=== PATIENT | female | born 1960 | race Caucasian/White ===

== ENCOUNTER 2017-11-14 06:46 | Day surgery (SDC) | payer OTHER ==
[2017-11-14] MEDS ORDERED: LIDOCAINE 4% SOLUTION 50 ML BTL (08:30)
[2017-11-14] MEDS ORDERED: MIDAZOLAM 1 MG/ML 2 ML INJ ×2 (09:07)
[2017-11-14] MEDS ORDERED: FENTAnyl 50 MCG/ML VIAL (09:07)
== END 2017-11-14 13:35 | disposition home or self-care (01) ==
LOC: GIL 06:46
DX: Z12.11 Encounter for screening for malignant neoplasm of colon (principal); K21.0 Gastro-esophageal reflux disease with esophagitis; K29.70 Gastritis, unspecified, without bleeding
CPT/HCPCS: 43239; 88305; 88312

== ENCOUNTER 2018-03-07 09:57 | Inpatient (IN) | payer OTHER ==
[2018-03-07] MEDS: ONDANSETRON 4 MG INJ IV (11:48)
[2018-03-07] MEDS: HYDROmorphONE 1 MG/5 ML IV SYRINGE IV (11:48)
[2018-03-07] MEDS: SOD CHLORIDE 0.9% 1,000 ML IV ×2 (11:48→15:28)
[2018-03-07 11:50] LABS: ADD MAN DIFF? NO
[2018-03-07 11:52] LABS: WHITE BLOOD COUNT 5.6 10^3/ul (4.8-10.8)
[2018-03-07 11:52] LABS: ABNORMAL IP MESSAGE 1; BASOPHILS % 0.5 % (0.0-2.0); EOSINOPHILS # 0.1 10^3/ul (0.0-0.5); EOSINOPHILS % 1.2 % (0.0-7.0); HEMATOCRIT 37.3 % (37.0-47.0); HEMOGLOBIN 12.5 g/dl (12.0-16.0); LYMPHOCYTES # 0.6 10^3/ul (0.8-2.9); MEAN CORPUSCULAR HEMOGLOBIN 29.3 pg (29.0-33.0); MEAN CORPUSCULAR HGB CONC 33.5 g/dl (32.0-37.0); MEAN CORPUSCULAR VOLUME 87.4 fl (82.0-101.0); MEAN PLATELET VOLUME 10.1 fl (7.4-10.4); MONOCYTE # 0.4 10^3/ul (0.3-0.9); MONOCYTES % 7.8 % (0.0-11.0); NEUTROPHIL # 4.5 10^3/ul (1.6-7.5); NEUTROPHILS % 79.4 % (39.0-77.0); PLATELET COUNT 299 10^3/UL (140-415); RED BLOOD COUNT 4.27 10^6/ul (4.20-5.40); RED CELL DISTRIBUTION WIDTH 12.9 % (11.5-14.5)
[2018-03-07 12:18] LABS: INR 0.86; PARTIAL THROMBOPLASTIN TIME 26.4 Sec (25.0-35.0); PROTIME 11.8 Sec (11.9-14.9); PT RATIO 0.9
[2018-03-07 12:26] LABS: ALANINE AMINOTRANSFERASE 31 IU/L (13-69); ALBUMIN 4.4 g/dl (3.3-4.9); ALBUMIN/GLOBULIN RATIO 1.18; ALKALINE PHOSPHATASE 88 IU/L (42-121); ANION GAP 16 (8-16); ASPARTATE AMINO TRANSFERASE 30 IU/L (15-46); BILIRUBIN,INDIRECT 0.4 mg/dl (0-1.1); BILIRUBIN,TOTAL 0.4 mg/dl (0.2-1.3); BLOOD UREA NITROGEN 19 mg/dl (7-20); CALCIUM 8.9 mg/dl (8.4-10.2); CARBON DIOXIDE 26 mmol/L (21-31); CHLORIDE 104 mmol/L (97-110); CREATININE 0.66 mg/dl (0.44-1.00); GLUCOSE 79 mg/dl (70-220); SODIUM 142 mmol/L (135-144); TOTAL PROTEIN 8.1 g/dl (6.1-8.1)
[2018-03-07] MEDS ORDERED: ONDANSETRON 4 MG INJ IV (14:30)
[2018-03-07] MEDS ORDERED: ACETAMINOPHEN 325 MG TAB PO ×2 (14:30→18:00)
[2018-03-07] MEDS: BISACODYL (EC) 5 MG TAB PO (16:53)
[2018-03-07] MEDS: morphine 2 MG INJ IV ×2 (16:53→20:45)
[2018-03-07] MEDS: MAGNESIUM CITRATE 300 ML BTL PO (17:40)
[2018-03-07] MEDS ORDERED: MAGNESIUM HYDROXIDE 30ML CUP PO (18:00)
[2018-03-07] MEDS ORDERED: NACL 0.9% 3 ML SYG IV (18:00)
[2018-03-07] MEDS ORDERED: DOCUSATE SODIUM 100 MG CAP PO (18:00)
[2018-03-07] MEDS ORDERED: ZOLPIDEM 5 MG TAB PO (18:00)
[2018-03-07] MEDS: D5W-0.45 NACL + KCL 20 MEQ 1,000 ML IV (18:55)
[2018-03-07] MEDS: POLYETHYLENE GLYCOL 3350 119 GM POWDER PO (18:55)
[2018-03-07] MEDS: HYDROCODONE/APAP (5/325) TAB PO (21:51)
[2018-03-08] MEDS: D5W-0.45 NACL + KCL 20 MEQ 1,000 ML IV ×5 (03:45→23:25)
[2018-03-08] MEDS: morphine 2 MG INJ IV ×4 (05:12→21:29)
[2018-03-08] MEDS: PANTOPRAZOLE 40 MG INJ IV (05:14)
[2018-03-08] MEDS: POLYETHYLENE GLYCOL 3350 119 GM POWDER PO (05:34)
[2018-03-08] MEDS: BISACODYL (EC) 5 MG TAB PO (05:36)
[2018-03-08 05:39] LABS: ADD MAN DIFF? NO
[2018-03-08 05:47] LABS: ABNORMAL IP MESSAGE 1; EOSINOPHILS # 0.1 10^3/ul (0.0-0.5); EOSINOPHILS % 3.4 % (0.0-7.0); HEMATOCRIT 38.1 % (37.0-47.0); HEMOGLOBIN 12.6 g/dl (12.0-16.0); LYMPHOCYTES # 0.5 10^3/ul (0.8-2.9); LYMPHOCYTES % 18.3 % (15.0-51.0); MEAN CORPUSCULAR HEMOGLOBIN 28.8 pg (29.0-33.0); MEAN CORPUSCULAR HGB CONC 33.1 g/dl (32.0-37.0); MEAN PLATELET VOLUME 10.2 fl (7.4-10.4); MONOCYTE # 0.3 10^3/ul (0.3-0.9); MONOCYTES % 9.2 % (0.0-11.0); NEUTROPHILS % 67.1 % (39.0-77.0); PLATELET COUNT 308 10^3/UL (140-415); RED BLOOD COUNT 4.38 10^6/ul (4.20-5.40); RED CELL DISTRIBUTION WIDTH 12.8 % (11.5-14.5)
[2018-03-08] MEDS ORDERED: PANTOPRAZOLE (EC) 40 MG TAB PO (06:00)
[2018-03-08 06:03] LABS: POSITIVE DIFF @See below
[2018-03-08 06:10] LABS: ALANINE AMINOTRANSFERASE 31 IU/L (13-69); ALBUMIN 3.8 g/dl (3.3-4.9); ALBUMIN/GLOBULIN RATIO 1.11; ALKALINE PHOSPHATASE 69 IU/L (42-121); ANION GAP 6 (8-16); ASPARTATE AMINO TRANSFERASE 23 IU/L (15-46); BILIRUBIN,INDIRECT 0.5 mg/dl (0-1.1); BILIRUBIN,TOTAL 0.5 mg/dl (0.2-1.3); BLOOD UREA NITROGEN 10 mg/dl (7-20); CALCIUM 9.2 mg/dl (8.4-10.2); CARBON DIOXIDE 35 mmol/L (21-31); CHLORIDE 104 mmol/L (97-110); GLUCOSE 91 mg/dl (70-220); MAGNESIUM 2.5 mg/dl (1.7-2.5); SODIUM 140 mmol/L (135-144); TOTAL PROTEIN 7.2 g/dl (6.1-8.1)
[2018-03-08 06:32] LABS: CARCINOEMBRYONIC ANTIGEN 5.6 ng/ml (0.0-5.0)
[2018-03-08 07:27] LABS: HEMOGLOBIN A1C 5.2 % (0-5.9)
[2018-03-08] MEDS ORDERED: ONDANSETRON 4 MG INJ IV (14:30)
[2018-03-08] MEDS ORDERED: DIPHENHYDRAMINE 50 MG INJ IV (14:30)
[2018-03-08] MEDS ORDERED: MEPERIDINE 25 MG INJ IV (14:30)
[2018-03-08] MEDS ORDERED: HYDROmorphONE (0.2 MG/ML) 10ML SYG IV (14:30)
[2018-03-08] MEDS: LIDOCAINE 2% (SDV) 5 ML INJ (14:57)
[2018-03-08] MEDS: PROPOFOL 40 ML (14:57)
[2018-03-08] MEDS: ONDANSETRON 4 MG INJ IV (16:03)
[2018-03-09] MEDS: PANTOPRAZOLE 40 MG INJ IV (06:04)
[2018-03-09] MEDS: D5W-0.45 NACL + KCL 20 MEQ 1,000 ML IV ×3 (06:04→17:19)
[2018-03-09] MEDS: morphine 2 MG INJ IV ×3 (06:04→22:20)
[2018-03-09] MEDS ORDERED: MESALAMINE 4 GM/60 ML ENEMA PR (09:00)
[2018-03-09] MEDS: MESALAMINE 1000 MG SUPP PR (10:57)
[2018-03-09] MEDS: HYDROCODONE/APAP (5/325) TAB PO (18:56)
[2018-03-09 22:32] LABS: ADD UMIC YES; UR ASCORBIC ACID NEGATIVE (NEGATIVE); UR BILIRUBIN (Dip) NEGATIVE (NEGATIVE); UR BLOOD (Dip) 1+ mg/dL (NEGATIVE); UR CLARITY CLEAR (CLEAR); UR COLOR STRAW (YELLOW); UR GLUCOSE (Dip) NEGATIVE (NEGATIVE); UR KETONES (Dip) NEGATIVE (NEGATIVE); UR LEUKOCYTE ESTERASE (Dip) 1+ Leu/ul (NEGATIVE); UR NITRITE (Dip) NEGATIVE (NEGATIVE); UR RBC 0 /HPF (0-5); UR SPECIFIC GRAVITY (Dip) 1.006 (1.003-1.030); UR TOTAL PROTEIN (Dip) NEGATIVE (NEGATIVE); UR UROBILINOGEN (Dip) NEGATIVE (NEGATIVE); UR WBC 5 /HPF (0-5)
[2018-03-10] MEDS: morphine 2 MG INJ IV ×3 (02:23→20:35)
[2018-03-10] MEDS: D5W-0.45 NACL + KCL 20 MEQ 1,000 ML IV ×2 (03:22→13:59)
[2018-03-10] MEDS: PANTOPRAZOLE 40 MG INJ IV (05:48)
[2018-03-10 05:54] LABS: WHITE BLOOD COUNT 2.3 10^3/ul (4.8-10.8)
[2018-03-10 05:54] LABS: ABNORMAL IP MESSAGE 1; HEMATOCRIT 35.4 % (37.0-47.0); HEMOGLOBIN 11.6 g/dl (12.0-16.0); MEAN CORPUSCULAR HEMOGLOBIN 28.9 pg (29.0-33.0); MEAN CORPUSCULAR HGB CONC 32.8 g/dl (32.0-37.0); MEAN CORPUSCULAR VOLUME 88.3 fl (82.0-101.0); MEAN PLATELET VOLUME 10.6 fl (7.4-10.4); PLATELET COUNT 254 10^3/UL (140-415); RED BLOOD COUNT 4.01 10^6/ul (4.20-5.40); RED CELL DISTRIBUTION WIDTH 12.8 % (11.5-14.5)
[2018-03-10 06:26] LABS: PATH REVIEW? YES; POSITIVE DIFF @See below
[2018-03-10 06:27] LABS: ADD MAN DIFF? YES
[2018-03-10 06:45] LABS: ALANINE AMINOTRANSFERASE 27 IU/L (13-69); ALBUMIN 3.6 g/dl (3.3-4.9); ALBUMIN/GLOBULIN RATIO 1.09; ALKALINE PHOSPHATASE 60 IU/L (42-121); ANION GAP 10 (8-16); ASPARTATE AMINO TRANSFERASE 23 IU/L (15-46); BILIRUBIN,INDIRECT 0.3 mg/dl (0-1.1); BILIRUBIN,TOTAL 0.3 mg/dl (0.2-1.3); BLOOD UREA NITROGEN 9 mg/dl (7-20); CALCIUM 8.5 mg/dl (8.4-10.2); CARBON DIOXIDE 33 mmol/L (21-31); CHLORIDE 104 mmol/L (97-110); CREATININE 0.64 mg/dl (0.44-1.00); GLUCOSE 70 mg/dl (70-220); POTASSIUM 4.1 mmol/L (3.5-5.1); SODIUM 143 mmol/L (135-144); TOTAL PROTEIN 6.9 g/dl (6.1-8.1)
[2018-03-10] MEDS: HYDROCODONE/APAP (5/325) TAB PO (07:57)
[2018-03-10 09:41] LABS: ANISOCYTOSIS 1+ (0-0); BAND NEUTROPHILS % (M) 2 % (0-4); BASOPHILS % (M) 2 % (0-2); EOSINOPHILS % (M) 7 % (0-7); ERYTHROBLAST% (NRBC) (M) 1 % (0-0); GIANT THROMBO% (M) 4 % (0-0); LYMPHOCYTES #M 0.3 10^3/ul (0.8-2.9); LYMPHOCYTES % (M) 15 % (15-51); MICROCYTOSIS 1+ (0-0); MONOCYTE #M 0.2 10^3/ul (0.3-0.9); MONOCYTES % (M) 11 % (0-11); MYELOCYTES % (M) 1 % (0-0); PLATELET ESTIMATE NORMAL; REACTIVE LYMPHOCYTES% (M) 2 % (0-0); SEG NEUT #M 1.4 10^3/ul (1.6-7.5); SEGMENTED NEUTROPHILS (M) % 60 % (39-77); SMUDGE%M 3 % (0-0)
[2018-03-10] MEDS: BARIUM SULF 2% 450 ML BTL (BERRY SMOOTHIE) PO ×2 (16:30→16:31)
[2018-03-10] MEDS ORDERED: SOD CHLORIDE 0.9% 100 ML (18:53)
[2018-03-10] MEDS ORDERED: IOHEXOL 300MG/ML 150 ML BTL (18:53)
[2018-03-10] MEDS: MESALAMINE 1000 MG SUPP PR (20:35)
[2018-03-10] MEDS ORDERED: MESALAMINE 4 GM/60 ML ENEMA PR (21:00)
[2018-03-11] MEDS: D5W-0.45 NACL + KCL 20 MEQ 1,000 ML IV ×4 (01:41→23:49)
[2018-03-11] MEDS: PANTOPRAZOLE (EC) 40 MG TAB PO (05:24)
[2018-03-11] MEDS: LEVOTHYROXINE 50 MCG TAB PO (05:24)
[2018-03-11] MEDS: morphine 2 MG INJ IV ×2 (07:56→13:29)
[2018-03-11 10:55] LABS: ADD MAN DIFF? NO
[2018-03-11 10:59] LABS: ABNORMAL IP MESSAGE 1; BASOPHILS % 0.6 % (0.0-2.0); EOSINOPHILS # 0.2 10^3/ul (0.0-0.5); EOSINOPHILS % 5.5 % (0.0-7.0); HEMATOCRIT 35.3 % (37.0-47.0); HEMOGLOBIN 11.6 g/dl (12.0-16.0); LYMPHOCYTES # 0.3 10^3/ul (0.8-2.9); LYMPHOCYTES % 9.3 % (15.0-51.0); MEAN CORPUSCULAR HEMOGLOBIN 28.9 pg (29.0-33.0); MEAN CORPUSCULAR HGB CONC 32.9 g/dl (32.0-37.0); MEAN CORPUSCULAR VOLUME 87.8 fl (82.0-101.0); MEAN PLATELET VOLUME 10.2 fl (7.4-10.4); MONOCYTE # 0.3 10^3/ul (0.3-0.9); MONOCYTES % 7.9 % (0.0-11.0); NEUTROPHIL # 2.6 10^3/ul (1.6-7.5); NEUTROPHILS % 76.4 % (39.0-77.0); PLATELET COUNT 257 10^3/UL (140-415); RED BLOOD COUNT 4.02 10^6/ul (4.20-5.40); RED CELL DISTRIBUTION WIDTH 12.8 % (11.5-14.5)
[2018-03-11 10:59] LABS: WHITE BLOOD COUNT 3.4 10^3/ul (4.8-10.8)
[2018-03-11 11:02] LABS: POSITIVE DIFF @See below
[2018-03-11] MEDS ORDERED: morphine LIQ (10 MG/5 ML) CUP PO (14:00)
[2018-03-11] MEDS: MESALAMINE 1000 MG SUPP PR (20:20)
[2018-03-11] MEDS: HYDROCODONE/APAP (5/325) TAB PO (20:20)
[2018-03-12 06:21] LABS: ADD MAN DIFF? NO
[2018-03-12] MEDS: PANTOPRAZOLE (EC) 40 MG TAB PO (06:29)
[2018-03-12] MEDS: LEVOTHYROXINE 50 MCG TAB PO (06:29)
[2018-03-12 06:40] LABS: ABNORMAL IP MESSAGE 1; BASOPHILS % 0.7 % (0.0-2.0); EOSINOPHILS # 0.2 10^3/ul (0.0-0.5); HEMATOCRIT 35.8 % (37.0-47.0); HEMOGLOBIN 11.7 g/dl (12.0-16.0); LYMPHOCYTES # 0.4 10^3/ul (0.8-2.9); LYMPHOCYTES % 15.9 % (15.0-51.0); MEAN CORPUSCULAR HEMOGLOBIN 28.6 pg (29.0-33.0); MEAN CORPUSCULAR HGB CONC 32.7 g/dl (32.0-37.0); MEAN CORPUSCULAR VOLUME 87.5 fl (82.0-101.0); MEAN PLATELET VOLUME 10.3 fl (7.4-10.4); MONOCYTE # 0.4 10^3/ul (0.3-0.9); MONOCYTES % 13.7 % (0.0-11.0); NEUTROPHIL # 1.7 10^3/ul (1.6-7.5); NEUTROPHILS % 62.7 % (39.0-77.0); PLATELET COUNT 257 10^3/UL (140-415); RED BLOOD COUNT 4.09 10^6/ul (4.20-5.40); RED CELL DISTRIBUTION WIDTH 12.8 % (11.5-14.5)
[2018-03-12 06:40] LABS: WHITE BLOOD COUNT 2.7 10^3/ul (4.8-10.8)
[2018-03-12 06:44] LABS: POSITIVE DIFF @See below
[2018-03-12 07:01] LABS: ANION GAP 13 (8-16); BLOOD UREA NITROGEN 9 mg/dl (7-20); CALCIUM 8.8 mg/dl (8.4-10.2); CARBON DIOXIDE 29 mmol/L (21-31); CHLORIDE 104 mmol/L (97-110); CREATININE 0.61 mg/dl (0.44-1.00); GLUCOSE 95 mg/dl (70-220); POTASSIUM 4.1 mmol/L (3.5-5.1); SODIUM 142 mmol/L (135-144)
[2018-03-12 07:18] LABS: PHOSPHORUS 4.1 mg/dl (2.5-4.9)
[2018-03-12] MEDS: D5W-0.45 NACL + KCL 20 MEQ 1,000 ML IV (07:45)
== END 2018-03-12 12:20 | disposition home or self-care (01) | DRG 394 ==
LOC: E/R 09:57 → MS2 14:03
PROC: 0DBP8ZX Excision of Rectum, Via Natural or Artificial Opening Endoscopic, Diagnostic (ICD-10-PCS; principal; 2018-03-08 13:30)
PROC: 0DBN8ZX Excision of Sigmoid Colon, Via Natural or Artificial Opening Endoscopic, Diagnostic (ICD-10-PCS; 2018-03-08 13:30)
DX: K62.89 Other specified diseases of anus and rectum (principal); K62.5 Hemorrhage of anus and rectum; C90.00 Multiple myeloma not having achieved remission; C88.0 Waldenstrom macroglobulinemia; E03.9 Hypothyroidism, unspecified
CPT/HCPCS: 36415; 74176; 74177; 76830; 80048; 80053; 81001; 82378; 83036; 83735; 84100; 85025; 85610; 85651; 85730; 86850; 86900; 86901; 87045; 87075; 87086; 87177; 88305; 96374; 96375; 99285-25

== ENCOUNTER 2018-03-15 13:42 | Outpatient (CLI) | payer OTHER | END 2018-03-15 16:42 | disposition home or self-care (01) | LOC: DCC 13:42 | DX: R10.9 Unspecified abdominal pain (principal); E03.9 Hypothyroidism, unspecified; Z85.79 Personal history of other malignant neoplasms of lymphoid, hematopoietic and related tissues | CPT/HCPCS: G0463 ==

== ENCOUNTER 2018-03-20 18:17 | Emergency (ER) | payer OTHER ==
[2018-03-20 23:03] LABS: ADD MAN DIFF? NO
[2018-03-20 23:07] LABS: WHITE BLOOD COUNT 2.8 10^3/ul (4.8-10.8)
[2018-03-20 23:07] LABS: BASOPHILS % 1.4 % (0.0-2.0); EOSINOPHILS # 0.1 10^3/ul (0.0-0.5); EOSINOPHILS % 4.9 % (0.0-7.0); HEMATOCRIT 35.3 % (37.0-47.0); HEMOGLOBIN 11.8 g/dl (12.0-16.0); LYMPHOCYTES # 0.7 10^3/ul (0.8-2.9); LYMPHOCYTES % 26.1 % (15.0-51.0); MEAN CORPUSCULAR HEMOGLOBIN 28.8 pg (29.0-33.0); MEAN CORPUSCULAR HGB CONC 33.4 g/dl (32.0-37.0); MEAN CORPUSCULAR VOLUME 86.1 fl (82.0-101.0); MEAN PLATELET VOLUME 10.1 fl (7.4-10.4); MONOCYTE # 0.5 10^3/ul (0.3-0.9); MONOCYTES % 16.3 % (0.0-11.0); NEUTROPHIL # 1.5 10^3/ul (1.6-7.5); NEUTROPHILS % 51.3 % (39.0-77.0); PLATELET COUNT 387 10^3/UL (140-415); RED CELL DISTRIBUTION WIDTH 13.2 % (11.5-14.5)
[2018-03-20] MEDS: morphine 4 MG/ML VIAL IV (23:07)
[2018-03-20] MEDS: ONDANSETRON 4 MG INJ IV (23:07)
[2018-03-20 23:31] LABS: ALANINE AMINOTRANSFERASE 38 IU/L (13-69); ALBUMIN 4.3 g/dl (3.3-4.9); ALBUMIN/GLOBULIN RATIO 1.13; ALKALINE PHOSPHATASE 97 IU/L (42-121); ANION GAP 14 (8-16); ASPARTATE AMINO TRANSFERASE 28 IU/L (15-46); BILIRUBIN,INDIRECT 0.4 mg/dl (0-1.1); BILIRUBIN,TOTAL 0.4 mg/dl (0.2-1.3); BLOOD UREA NITROGEN 15 mg/dl (7-20); CALCIUM 9.8 mg/dl (8.4-10.2); CARBON DIOXIDE 30 mmol/L (21-31); CHLORIDE 104 mmol/L (97-110); CREATININE 0.64 mg/dl (0.44-1.00); GLUCOSE 92 mg/dl (70-220); LIPASE 80 U/L (23-300); POTASSIUM 3.8 mmol/L (3.5-5.1); SODIUM 144 mmol/L (135-144); TOTAL PROTEIN 8.1 g/dl (6.1-8.1)
[2018-03-20 23:35] LABS: INR 0.97
[2018-03-20 23:36] LABS: PARTIAL THROMBOPLASTIN TIME 29.2 Sec (25.0-35.0)
[2018-03-20 23:42] LABS: TROPONIN-I < 0.012 ng/ml (0.000-0.120)
[2018-03-20 23:57] LABS: ADD UMIC YES; UR ASCORBIC ACID NEGATIVE (NEGATIVE); UR BILIRUBIN (Dip) NEGATIVE (NEGATIVE); UR BLOOD (Dip) NEGATIVE (NEGATIVE); UR CLARITY CLEAR (CLEAR); UR COLOR YELLOW (YELLOW); UR GLUCOSE (Dip) NEGATIVE (NEGATIVE); UR KETONES (Dip) TRACE mg/dL (NEGATIVE); UR LEUKOCYTE ESTERASE (Dip) 1+ Leu/ul (NEGATIVE); UR NITRITE (Dip) NEGATIVE (NEGATIVE); UR RBC 1 /HPF (0-5); UR SPECIFIC GRAVITY (Dip) 1.014 (1.003-1.030); UR TOTAL PROTEIN (Dip) NEGATIVE (NEGATIVE); UR UROBILINOGEN (Dip) NEGATIVE (NEGATIVE); UR WBC 18 /HPF (0-5)
== END 2018-03-21 00:56 | disposition home or self-care (01) ==
LOC: E/R 03-21 00:56
DX: R10.32 Left lower quadrant pain (principal)
CPT/HCPCS: 36415; 74176; 80053; 81001; 83690; 84484; 85025; 85610; 85730; 96374; 96375; 99285-25

== ENCOUNTER 2018-03-29 13:31 | Outpatient (CLI) | payer OTHER | END 2018-03-29 16:41 | disposition home or self-care (01) | LOC: DCC 13:31 | DX: M54.9 Dorsalgia, unspecified (principal); C90.00 Multiple myeloma not having achieved remission; E03.9 Hypothyroidism, unspecified; K62.89 Other specified diseases of anus and rectum | CPT/HCPCS: G0463 ==

== ENCOUNTER 2018-04-09 16:34 | Emergency (ER) | payer OTHER ==
[2018-04-09] MEDS: IPRATROPIUM (NEB) 0.5 MG/2.5 ML AMP INH (18:16)
[2018-04-09] MEDS: ALBUTEROL 0.083% (NEB) 2.5 MG/3 ML AMP HHN (18:16)
[2018-04-09 18:38] LABS: ADD MAN DIFF? NO
[2018-04-09 18:40] LABS: BASOPHILS % 0.8 % (0.0-2.0); EOSINOPHILS # 0.1 10^3/ul (0.0-0.5); EOSINOPHILS % 1.3 % (0.0-7.0); HEMATOCRIT 37.7 % (37.0-47.0); HEMOGLOBIN 12.5 g/dl (12.0-16.0); LYMPHOCYTES # 1.4 10^3/ul (0.8-2.9); LYMPHOCYTES % 37.3 % (15.0-51.0); MEAN CORPUSCULAR HGB CONC 33.2 g/dl (32.0-37.0); MEAN CORPUSCULAR VOLUME 87.5 fl (82.0-101.0); MEAN PLATELET VOLUME 10.5 fl (7.4-10.4); MONOCYTE # 0.9 10^3/ul (0.3-0.9); MONOCYTES % 23.5 % (0.0-11.0); NEUTROPHIL # 1.4 10^3/ul (1.6-7.5); NEUTROPHILS % 36.8 % (39.0-77.0); PLATELET COUNT 357 10^3/UL (140-415); RED BLOOD COUNT 4.31 10^6/ul (4.20-5.40); RED CELL DISTRIBUTION WIDTH 12.8 % (11.5-14.5)
[2018-04-09 18:40] LABS: WHITE BLOOD COUNT 3.8 10^3/ul (4.8-10.8)
[2018-04-09 19:03] LABS: LACTIC ACID 3.8 mmol/L (0.5-2.0)
[2018-04-09 19:03] LABS: ANION GAP 15 (8-16); BLOOD UREA NITROGEN 12 mg/dl (7-20); CARBON DIOXIDE 28 mmol/L (21-31); CHLORIDE 105 mmol/L (97-110); CREATININE 0.63 mg/dl (0.44-1.00); GLUCOSE 93 mg/dl (70-220); POTASSIUM 3.9 mmol/L (3.5-5.1); SODIUM 144 mmol/L (135-144)
[2018-04-09] MEDS: ONDANSETRON 4 MG INJ IV (19:11)
[2018-04-09] MEDS: BENZONATATE 100 MG CAP PO (19:11)
[2018-04-09 19:16] LABS: TROPONIN-I < 0.010 ng/ml (0.000-0.120)
== END 2018-04-09 21:07 | disposition home or self-care (01) ==
LOC: E/R 16:34
DX: R05 Cough (principal); R07.9 Chest pain, unspecified; C88.0 Waldenstrom macroglobulinemia; R11.10 Vomiting, unspecified
CPT/HCPCS: 36415; 71045; 80048; 83605; 84484; 85025; 93005; 94664; 96374; 99285-25

== ENCOUNTER 2018-06-14 14:29 | Emergency (ER) | payer OTHER ==
[2018-06-14 16:08] LABS: ADD MAN DIFF? NO
[2018-06-14 16:12] LABS: BASOPHILS % 0.6 % (0.0-2.0); EOSINOPHILS # 0.1 10^3/ul (0.0-0.5); EOSINOPHILS % 1.8 % (0.0-7.0); HEMATOCRIT 38.8 % (37.0-47.0); LYMPHOCYTES # 0.8 10^3/ul (0.8-2.9); LYMPHOCYTES % 16.6 % (15.0-51.0); MEAN CORPUSCULAR HEMOGLOBIN 28.9 pg (29.0-33.0); MEAN CORPUSCULAR HGB CONC 33.5 g/dl (32.0-37.0); MEAN CORPUSCULAR VOLUME 86.2 fl (82.0-101.0); MEAN PLATELET VOLUME 9.8 fl (7.4-10.4); MONOCYTE # 0.4 10^3/ul (0.3-0.9); MONOCYTES % 8.2 % (0.0-11.0); NEUTROPHIL # 3.5 10^3/ul (1.6-7.5); NEUTROPHILS % 72.6 % (39.0-77.0); PLATELET COUNT 353 10^3/UL (140-415); RED CELL DISTRIBUTION WIDTH 12.3 % (11.5-14.5)
[2018-06-14 16:12] LABS: WHITE BLOOD COUNT 4.9 10^3/ul (4.8-10.8)
[2018-06-14] MEDS: PANTOPRAZOLE 40 MG INJ IV (16:12)
[2018-06-14] MEDS: LIDOCAINE/MYLANTA 40 ML BTL PO (16:12)
[2018-06-14] MEDS: SOD CHLORIDE 0.9% 1,000 ML IV (16:14)
[2018-06-14 16:30] LABS: ADD UMIC NO; UR ASCORBIC ACID NEGATIVE (NEGATIVE); UR BILIRUBIN (Dip) NEGATIVE (NEGATIVE); UR BLOOD (Dip) NEGATIVE (NEGATIVE); UR CLARITY CLEAR (CLEAR); UR COLOR YELLOW (YELLOW); UR GLUCOSE (Dip) NEGATIVE (NEGATIVE); UR KETONES (Dip) TRACE mg/dL (NEGATIVE); UR LEUKOCYTE ESTERASE (Dip) NEGATIVE Leu/ul (NEGATIVE); UR NITRITE (Dip) NEGATIVE (NEGATIVE); UR SPECIFIC GRAVITY (Dip) 1.016 (1.003-1.030); UR TOTAL PROTEIN (Dip) NEGATIVE (NEGATIVE); UR UROBILINOGEN (Dip) NEGATIVE (NEGATIVE)
[2018-06-14 16:33] LABS: ALANINE AMINOTRANSFERASE 26 IU/L (13-69); ALBUMIN 4.6 g/dl (3.3-4.9); ALBUMIN/GLOBULIN RATIO 1.35; ALKALINE PHOSPHATASE 90 IU/L (42-121); ANION GAP 17 (8-16); ASPARTATE AMINO TRANSFERASE 28 IU/L (15-46); BILIRUBIN,INDIRECT 0.3 mg/dl (0-1.1); BILIRUBIN,TOTAL 0.3 mg/dl (0.2-1.3); BLOOD UREA NITROGEN 18 mg/dl (7-20); CALCIUM 9.4 mg/dl (8.4-10.2); CARBON DIOXIDE 25 mmol/L (21-31); CHLORIDE 105 mmol/L (97-110); CREATININE 0.65 mg/dl (0.44-1.00); GLUCOSE 89 mg/dl (70-220); LIPASE 100 U/L (23-300); POTASSIUM 4.4 mmol/L (3.5-5.1); SODIUM 143 mmol/L (135-144)
== END 2018-06-14 17:45 | disposition home or self-care (01) ==
LOC: E/R 14:29
DX: R10.12 Left upper quadrant pain (principal); R40.2142 Coma scale, eyes open, spontaneous, at arrival to emergency department; R40.2362 Coma scale, best motor response, obeys commands, at arrival to emergency department; R40.2252 Coma scale, best verbal response, oriented, at arrival to emergency department
CPT/HCPCS: 36415; 80053; 81003; 83690; 85025; 96374; 99284-25

== ENCOUNTER 2018-07-19 17:11 | Emergency (ER) | payer OTHER ==
[2018-07-19 23:45] LABS: ADD MAN DIFF? NO
[2018-07-19 23:49] LABS: WHITE BLOOD COUNT 5.1 10^3/ul (4.8-10.8)
[2018-07-19 23:49] LABS: BASOPHILS % 0.2 % (0.0-2.0); EOSINOPHILS # 0.1 10^3/ul (0.0-0.5); EOSINOPHILS % 2.4 % (0.0-7.0); HEMATOCRIT 40.9 % (37.0-47.0); HEMOGLOBIN 13.5 g/dl (12.0-16.0); LYMPHOCYTES # 1.4 10^3/ul (0.8-2.9); LYMPHOCYTES % 27.6 % (15.0-51.0); MEAN CORPUSCULAR HEMOGLOBIN 27.8 pg (29.0-33.0); MEAN CORPUSCULAR VOLUME 84.3 fl (82.0-101.0); MEAN PLATELET VOLUME 9.8 fl (7.4-10.4); MONOCYTE # 0.5 10^3/ul (0.3-0.9); MONOCYTES % 9.8 % (0.0-11.0); NEUTROPHILS % 59.6 % (39.0-77.0); PLATELET COUNT 338 10^3/UL (140-415); RED BLOOD COUNT 4.85 10^6/ul (4.20-5.40)
[2018-07-19] MEDS: ONDANSETRON 4 MG INJ IV (23:51)
[2018-07-19] MEDS: SOD CHLORIDE 0.9% 1,000 ML IV (23:51)
[2018-07-19] MEDS: morphine 4 MG/ML VIAL IV (23:51)
[2018-07-20 00:05] LABS: ALANINE AMINOTRANSFERASE 22 IU/L (13-69); ALBUMIN 4.6 g/dl (3.3-4.9); ALBUMIN/GLOBULIN RATIO 1.15; ALKALINE PHOSPHATASE 101 IU/L (42-121); ANION GAP 14 (8-16); ASPARTATE AMINO TRANSFERASE 28 IU/L (15-46); BILIRUBIN,INDIRECT 0.6 mg/dl (0-1.1); BILIRUBIN,TOTAL 0.6 mg/dl (0.2-1.3); BLOOD UREA NITROGEN 16 mg/dl (7-20); CALCIUM 9.9 mg/dl (8.4-10.2); CARBON DIOXIDE 32 mmol/L (21-31); CHLORIDE 100 mmol/L (97-110); CREATININE 0.54 mg/dl (0.44-1.00); GLUCOSE 97 mg/dl (70-220); LIPASE 53 U/L (23-300); POTASSIUM 4.1 mmol/L (3.5-5.1); SODIUM 142 mmol/L (135-144); TOTAL PROTEIN 8.6 g/dl (6.1-8.1)
[2018-07-20 00:07] LABS: INR 0.91; PROTIME 12.3 Sec (11.9-14.9)
[2018-07-20 02:07] LABS: URINE BLOOD (Dip) POC Negative (NEGATIVE); URINE GLUCOSE (Dip) POC Negative (NEGATIVE); URINE KETONES (Dip) POC 2+ (NEGATIVE); URINE LEUKOCYTE EST (Dip) POC Trace (NEGATIVE); URINE NITRITE (Dip) POC Negative (NEGATIVE); URINE TOTAL PROTEIN POC Trace (NEGATIVE)
[2018-07-20 02:07] LABS: URINE PH (Dip) POC 7.5 (5.0-8.5)
[2018-07-20] MEDS: FAMOTIDINE 20 MG INJ IV (02:31)
[2018-07-20] MEDS: LIDOCAINE/MYLANTA 40 ML BTL PO (02:31)
[2018-07-20 03:02] LABS: ADD UMIC NO; UR ASCORBIC ACID NEGATIVE (NEGATIVE); UR BILIRUBIN (Dip) NEGATIVE (NEGATIVE); UR BLOOD (Dip) NEGATIVE (NEGATIVE); UR CLARITY CLEAR (CLEAR); UR COLOR YELLOW (YELLOW); UR GLUCOSE (Dip) NEGATIVE (NEGATIVE); UR KETONES (Dip) 1+ mg/dL (NEGATIVE); UR LEUKOCYTE ESTERASE (Dip) NEGATIVE Leu/ul (NEGATIVE); UR NITRITE (Dip) NEGATIVE (NEGATIVE); UR SPECIFIC GRAVITY (Dip) 1.023 (1.003-1.030); UR TOTAL PROTEIN (Dip) NEGATIVE (NEGATIVE); UR UROBILINOGEN (Dip) NEGATIVE (NEGATIVE)
== END 2018-07-20 03:38 | disposition home or self-care (01) ==
LOC: E/R 07-20 03:38
DX: E87.3 Alkalosis (principal); R19.7 Diarrhea, unspecified
CPT/HCPCS: 36415; 74177; 80053; 81003; 83690; 85025; 85610; 96374; 96375; 99285-25

== ENCOUNTER 2018-08-03 08:02 | Emergency (ER) | payer OTHER ==
[2018-08-03] MEDS: SOD CHLORIDE 0.9% 1,000 ML IV (08:37)
[2018-08-03 08:39] LABS: ADD MAN DIFF? NO
[2018-08-03 08:40] LABS: BASOPHILS % 0.5 % (0.0-2.0); EOSINOPHILS # 0.1 10^3/ul (0.0-0.5); EOSINOPHILS % 2.4 % (0.0-7.0); HEMATOCRIT 41.2 % (37.0-47.0); HEMOGLOBIN 13.6 g/dl (12.0-16.0); LYMPHOCYTES # 0.9 10^3/ul (0.8-2.9); LYMPHOCYTES % 23.6 % (15.0-51.0); MEAN CORPUSCULAR VOLUME 84.9 fl (82.0-101.0); MONOCYTE # 0.3 10^3/ul (0.3-0.9); MONOCYTES % 7.4 % (0.0-11.0); NEUTROPHIL # 2.5 10^3/ul (1.6-7.5); NEUTROPHILS % 65.8 % (39.0-77.0); PLATELET COUNT 328 10^3/UL (140-415); RED BLOOD COUNT 4.85 10^6/ul (4.20-5.40); RED CELL DISTRIBUTION WIDTH 12.2 % (11.5-14.5)
[2018-08-03 08:40] LABS: WHITE BLOOD COUNT 3.8 10^3/ul (4.8-10.8)
[2018-08-03 08:52] LABS: ADD UMIC NO; UR ASCORBIC ACID NEGATIVE (NEGATIVE); UR BILIRUBIN (Dip) NEGATIVE (NEGATIVE); UR BLOOD (Dip) NEGATIVE (NEGATIVE); UR CLARITY CLEAR (CLEAR); UR COLOR YELLOW (YELLOW); UR GLUCOSE (Dip) NEGATIVE (NEGATIVE); UR KETONES (Dip) NEGATIVE (NEGATIVE); UR LEUKOCYTE ESTERASE (Dip) NEGATIVE Leu/ul (NEGATIVE); UR NITRITE (Dip) NEGATIVE (NEGATIVE); UR SPECIFIC GRAVITY (Dip) 1.017 (1.003-1.030); UR TOTAL PROTEIN (Dip) NEGATIVE (NEGATIVE); UR UROBILINOGEN (Dip) 1+ mg/dL (NEGATIVE)
[2018-08-03 08:59] LABS: ALANINE AMINOTRANSFERASE 28 IU/L (13-69); ALBUMIN 4.3 g/dl (3.3-4.9); ALKALINE PHOSPHATASE 87 IU/L (42-121); ANION GAP 14 (8-16); ASPARTATE AMINO TRANSFERASE 34 IU/L (15-46); BILIRUBIN,INDIRECT 0.5 mg/dl (0-1.1); BILIRUBIN,TOTAL 0.5 mg/dl (0.2-1.3); BLOOD UREA NITROGEN 15 mg/dl (7-20); CALCIUM 10.1 mg/dl (8.4-10.2); CARBON DIOXIDE 32 mmol/L (21-31); CHLORIDE 102 mmol/L (97-110); CREATININE 0.61 mg/dl (0.44-1.00); GLUCOSE 73 mg/dl (70-220); POTASSIUM 3.9 mmol/L (3.5-5.1); SODIUM 144 mmol/L (135-144); TOTAL PROTEIN 8.2 g/dl (6.1-8.1)
[2018-08-03] MEDS: morphine 2 MG INJ IV (09:42)
[2018-08-03] MEDS: ONDANSETRON 4 MG INJ IV (09:42)
== END 2018-08-03 11:08 | disposition home or self-care (01) ==
LOC: FTE 08:02
DX: R51 Headache (principal); Z85.6 Personal history of leukemia
CPT/HCPCS: 36415; 70450; 80053; 81003; 85025; 87400; 87880; 96361; 96374; 96375; 99285-25

== ENCOUNTER 2018-09-20 07:42 | Emergency (ER) | payer OTHER | END 2018-09-20 09:52 | disposition home or self-care (01) | LOC: FTE 07:42 | DX: M79.604 Pain in right leg (principal); M79.605 Pain in left leg; Z85.6 Personal history of leukemia | CPT/HCPCS: 73630; 73630-LT; 99284-25 ==

== ENCOUNTER 2018-11-26 17:38 | Emergency (ER) | payer OTHER ==
[2018-11-26] MEDS: KETOROLAC 30 MG INJ IM (21:29)
[2018-11-26] MEDS: LIDOCAINE/MYLANTA 40 ML BTL PO (21:29)
== END 2018-11-26 21:48 | disposition home or self-care (01) ==
LOC: E/R 17:38
DX: J02.9 Acute pharyngitis, unspecified (principal); F45.8 Other somatoform disorders; C88.0 Waldenstrom macroglobulinemia; Z85.6 Personal history of leukemia
CPT/HCPCS: 96372; 99284-25

== ENCOUNTER 2019-04-19 16:37 | Emergency (ER) | payer SELFPAY, OTHER | END 2019-04-19 17:31 | disposition left against medical advice (07) | LOC: E/R 16:37 | DX: Z53.21 Procedure and treatment not carried out due to patient leaving prior to being seen by health care provider (principal) ==

== ENCOUNTER 2019-05-05 09:47 | Emergency (ER) | payer OTHER ==
[2019-05-05] MEDS ORDERED: CLINDAMYCIN 300 MG CAP PO (10:30)
[2019-05-05] MEDS: CEFTRIAXONE 250 MG INJ IM (10:36)
[2019-05-05] MEDS: LIDOCAINE 1% (MDV) 20 ML INJ SC (10:36)
[2019-05-05] MEDS: CIPROFLOXACIN 500 MG TAB PO (10:38)
[2019-05-05 10:44] LABS: ADD MAN DIFF? NO
[2019-05-05 10:47] LABS: WHITE BLOOD COUNT 6.7 10^3/ul (4.8-10.8)
[2019-05-05 10:47] LABS: BASOPHILS % 0.3 % (0.0-2.0); EOSINOPHILS # 0.1 10^3/ul (0.0-0.5); EOSINOPHILS % 1.3 % (0.0-7.0); HEMATOCRIT 37.4 % (37.0-47.0); HEMOGLOBIN 12.4 g/dl (12.0-16.0); LYMPHOCYTES # 0.8 10^3/ul (0.8-2.9); LYMPHOCYTES % 11.7 % (15.0-51.0); MEAN CORPUSCULAR HGB CONC 33.2 g/dl (32.0-37.0); MEAN CORPUSCULAR VOLUME 87.4 fl (82.0-101.0); MEAN PLATELET VOLUME 10.4 fl (7.4-10.4); MONOCYTE # 0.4 10^3/ul (0.3-0.9); MONOCYTES % 6.3 % (0.0-11.0); NEUTROPHIL # 5.3 10^3/ul (1.6-7.5); NEUTROPHILS % 80.1 % (39.0-77.0); PLATELET COUNT 318 10^3/UL (140-415); RED BLOOD COUNT 4.28 10^6/ul (4.20-5.40); RED CELL DISTRIBUTION WIDTH 12.6 % (11.5-14.5)
[2019-05-05 11:36] LABS: INR 0.88; PARTIAL THROMBOPLASTIN TIME 26.9 Sec (23.0-35.0); PT RATIO 0.9
== END 2019-05-05 11:59 | disposition home or self-care (01) ==
LOC: FTE 11:59
DX: H92.02 Otalgia, left ear (principal); L03.818 Cellulitis of other sites
CPT/HCPCS: 36415; 85025; 85610; 85730; 99283

== ENCOUNTER → 2019-05-16 | Emergency (ER) | payer OTHER ==
[2019-05-16] MEDS: IPRATROPIUM (NEB) 0.5 MG/2.5 ML AMP HHN (18:23)
[2019-05-16] MEDS: ACETAMINOPHEN 325 MG TAB PO (18:58)
== END | disposition home or self-care (01) ==
LOC: FTE 16:46
DX: R05 Cough (principal); C85.90 Non-Hodgkin lymphoma, unspecified, unspecified site
CPT/HCPCS: 71046; 94664; 99283-25

== ENCOUNTER 2019-07-13 10:05 | Emergency (ER) | payer OTHER ==
[2019-07-13] MEDS ORDERED: FLUORESCEIN STRIP (11:45)
[2019-07-13] MEDS: FLUORESCEIN STRIP BOTH EYES (11:46)
[2019-07-13] MEDS: TETRACAINE 0.5% 4 ML OPH BOTH EYES (11:46)
== END 2019-07-13 13:15 | disposition home or self-care (01) ==
LOC: FTE 10:05
DX: H57.11 Ocular pain, right eye (principal); H60.12 Cellulitis of left external ear; Z85.6 Personal history of leukemia; Z85.72 Personal history of non-Hodgkin lymphomas; Z86.69 Personal history of other diseases of the nervous system and sense organs
CPT/HCPCS: 99283; Z7502